=== PATIENT | male | born 1965 | race Caucasian/White ===

== ENCOUNTER 2016-10-03 18:03 | Emergency (ER) | payer BC ==
[~2016-10-03] VITALS: Ht 193 cm; Wt 145.6 kg
[~2016-10-03 18:03] MED LIST: ALLEGRA-D12 HOUR OR; CEPHALEXIN500 MG OR; DULERA1 AE1 IN; DYMISTA1 SPR; HYDROCO/APAP1 TA1 OR; L-THYROXINE SODIUM; LEVOTHYROXIN75 MCG PO; LIPITOR40 MG OR; LORTAB 5 OR; MONTELUKAST SOD10 MG PO; MUCINEX DM1 TAB OR; NO HOME MEDS; PERCOCET 10/31 COMBO PO; PERCOCET1 TA2 PO; PRAVACHOL20 MG PO; PRAVASTATIN SOD40 MG PO; PRAVASTATIN20 MG PO; VENTOLIN HFA IN
[2016-10-03 18:42] LABS: HEMATOCRIT 41.1 % (39.0-50.0); HEMOGLOBIN 13.7 g/dl (14.0-18.0); IMMATURE GRANULOCYTES 0.3 % (0.0-1.0); MEAN CELL VOLUME 88.6 fL CALC (80.0-100.0); MEAN CORPUSCULAR HGB 29.5 pG CALC (26.0-32.0); MEAN CORPUSCULAR HGB CONC 33.3 g/L CALC (32.0-36.0); NEUT# 6.02 thou/uL (1.82-7.42); RED BLOOD COUNT 4.64 mill/uL (4.70-6.10); RED CELL DISTRI WIDTH 13.5 % (11.5-15.5)
[2016-10-03 19:05] LABS: ALBUMIN 4.6 g/dL (3.2-5.0); ALKALINE PHOSPHATASE 59 u/l (38-126); ANION GAP 17 (6-22 (CALC)); BILIRUBIN, TOTAL 0.4 mg/dL (0.0-1.4); BUN 23 mg/dL (9-20); BUN/CREATININE RATIO 18 (12-20 (CALC)); CALCIUM 9.6 mg/dL (8.4-10.2); CARBON DIOXIDE 24 mmol/l (22-30); CHLORIDE 104 mmol/l (95-108); CREATININE 1.2 mg/dL (0.7-1.3); GFR > 60 ML/MIN (>=60 (CALC)); GFR FOR AFR.AMER. > 60 ML/MIN (>=60 (CALC)); GLUCOSE 79 mg/dL (75-110); POTASSIUM 4.2 mmol/l (3.5-5.1); SGOT/AST 31 u/l (17-59); SGPT/ALT 42 u/l (21-72); SODIUM 141 mmol/l (137-146); TOTAL PROTEIN 7.6 g/dL (6.3-8.2)
[2016-10-03] MEDS ORDERED: BENADRYL 50MG C50 MG PO (20:55)
[2016-10-03 21:13] VITALS: BP 131/74
== END 2016-10-03 21:13 | disposition home or self-care (01) | DRG 916 ==
LOC: ED 18:03
PROVIDERS: Emergency Medicine
DX: T78.40XA Allergy, unspecified, initial encounter (principal); R21 Rash and other nonspecific skin eruption; R22.0 Localized swelling, mass and lump, head

== ENCOUNTER 2017-03-05 18:49 | Inpatient (IN) | payer BC ==
[~2017-03-05] VITALS: Ht 193 cm; Wt 143.0 kg
[~2017-03-05 18:49] MED LIST changes: +BENADRYL 50MG C50 MG PO
--- NOTE | 2017-03-05 18:50 | NUR ---
PT ARRIVES TO ROOM # 4 VIA EMS STRETCHER WITH SPLINT IN PLACE TO RIGHT ANKLE.
--- NOTE | 2017-03-05 19:33 | NUR ---
REPORT GIVEN TO David FREEDMAN
[2017-03-05] MEDS ORDERED: METFORMIN500 M1 PO (19:35)
[2017-03-05] MEDS ORDERED: LEVOTHYROXINE112 MCG PO (19:35)
[2017-03-05] MEDS ORDERED: PHENTERMINE37.5 M1 PO (19:36)
[2017-03-05] MEDS ORDERED: MELOXICAM7.5 MG PO (19:37)
[2017-03-05 19:59] LABS: HEMATOCRIT 41.7 % (39.0-50.0); HEMOGLOBIN 14.1 g/dl (14.0-18.0); IMMATURE GRANULOCYTES 0.4 % (0.0-1.0); MEAN CELL VOLUME 89.5 fL CALC (80.0-100.0); MEAN CORPUSCULAR HGB 30.3 pG CALC (26.0-32.0); MEAN CORPUSCULAR HGB CONC 33.8 g/L CALC (32.0-36.0); NEUT# 8.47 thou/uL (1.82-7.42); RED BLOOD COUNT 4.66 mill/uL (4.70-6.10); RED CELL DISTRI WIDTH 12.9 % (11.5-15.5)
[2017-03-05 20:13] LABS: ALBUMIN 4.5 g/dL (3.2-5.0); ALKALINE PHOSPHATASE 59 u/l (38-126); ANION GAP 17 (6-22 (CALC)); BILIRUBIN, TOTAL 0.3 mg/dL (0.0-1.4); BUN 27 mg/dL (9-20); BUN/CREATININE RATIO 19 (12-20 (CALC)); CALCIUM 9.7 mg/dL (8.4-10.2); CARBON DIOXIDE 23 mmol/l (22-30); CHLORIDE 105 mmol/l (95-108); CREATININE 1.5 mg/dL (0.7-1.3); GFR 50 ML/MIN (>=60 (CALC)); GFR FOR AFR.AMER. 60 ML/MIN (>=60 (CALC)); GLUCOSE 122 mg/dL (75-110); POTASSIUM 3.9 mmol/l (3.5-5.1); SGOT/AST 34 u/l (17-59); SGPT/ALT 55 u/l (21-72); SODIUM 141 mmol/l (137-146); TOTAL PROTEIN 7.5 g/dL (6.3-8.2)
[2017-03-05 20:22] LABS: ACT PARTIAL THROMBO TIME 22.8 SECONDS (20.0-32.5); PROTHROMBIN TIME 10.8 SECONDS (9.0-12.5)
[2017-03-05 20:25] LABS: MYOGLOBIN 171 ng/mL (0 - 121)
--- NOTE | 2017-03-05 21:41 | NUR ---
PT RECEIVES SECOND DOSE OF MORPHINE AT THIS TIME, PRIOR TO PLACEMENT OF POSTERIOR ORTHOGLASS SPLINT.
--- NOTE | 2017-03-05 22:00 | NUR ---
RECEIVED REPORT FROM FRANSISCO FREEDMAN.
--- NOTE | 2017-03-05 22:52 | NUR ---
Admission Note Report Given to: STONE GO Transported by: Wheelchair X Stretcher Transported with: X Nurse Transporter X Patent IV O2 X Supervisor [employer]
--- NOTE | 2017-03-05 23:15 | NUR ---
RECEIVED FROM ER VIA STRETCHER ACCOMPANIED BY FREDDY RN, PT A/O X3, RESPIRATIONS EVEN AND UNLABORED, TRANSFERRED TO BED WITH ASSISTNACE X3. ORTHOGLASS SPLINT TO RLE, RIGHT ANKLE XRAY RESULTS READ BIMALLEOLAR FX, ABLE TO WIGGLE TOES, SLIGHT NON PITTING EDEMA TO TOES. C/O PAIN 10/10 MEDICATED WITH ULTRAM 50MG. NS INFUSING TO RAC AT 100CC/HR. TELE IN PLACE READING SR. URINAL AT BED SIDE, ORIENTED TO BED CONTROLS AND CALL LIGHT. WILL CONTINUE TO MONITOR.
[2017-03-05 23:16] VITALS: BP 104/70
[2017-03-05 23:43] LABS: URINE BILIRUBIN - DIPSTICK NEGATIVE (NEGATIVE); URINE BLOOD DIPSTICK NEGATIVE (NEGATIVE); URINE COLOR YELLOW; URINE GLUCOSE - DIPSTICK NEGATIVE (NEGATIVE); URINE KETONE NEGATIVE (NEGATIVE); URINE LEUK ESTERASE NEGATIVE (NEGATIVE); URINE NITRITE - DIPSTICK NEGATIVE (Negative); URINE PROTEIN - DIPSTICK NEGATIVE (NEG-TRACE); URINE UROBILINOGEN - DIPSTICK 0.2 E.U./dL (0.2)
[2017-03-05 23:44] LABS: URINE CLARITY CLEAR
--- NOTE | 2017-03-06 00:33 | NUR ---
PT DENIES ANY PAIN RELIEF FROM ULTRAM, NOTIFIED, NEW ORDER RECEIVED AND MEDICATED WITH DILAUDID 1MG IV AT 0033. WILL CONTINUE TO MONITOR.
[2017-03-06 04:15] VITALS: BP 108/67
--- NOTE | 2017-03-06 04:25 | NUR ---
MEDICATED WITH DILAUDID 1MG IV FOR C/O RIGHT LOWER LEG PAIN 09/10.
[2017-03-06 06:34] LABS: HEMATOCRIT 38.9 % (39.0-50.0); HEMOGLOBIN 12.9 g/dl (14.0-18.0); MEAN CELL VOLUME 89.8 fL CALC (80.0-100.0); MEAN CORPUSCULAR HGB 29.8 pG CALC (26.0-32.0); MEAN CORPUSCULAR HGB CONC 33.2 g/L CALC (32.0-36.0); RED BLOOD COUNT 4.33 mill/uL (4.70-6.10); RED CELL DISTRI WIDTH 13.1 % (11.5-15.5)
[2017-03-06 06:47] LABS: ANION GAP 15 (6-22 (CALC)); BUN 21 mg/dL (9-20); BUN/CREATININE RATIO 21 (12-20 (CALC)); CALCIUM 9.2 mg/dL (8.4-10.2); CALCULATED LDLCHOLESTEROL 86 mg/dL (62-129 (CALC)); CARBON DIOXIDE 22 mmol/l (22-30); CHLORIDE 108 mmol/l (95-108); CHOLESTEROL HDL RATIO 3.8 (<4.4 (CALC)); GFR > 60 ML/MIN (>=60 (CALC)); GFR FOR AFR.AMER. > 60 ML/MIN (>=60 (CALC)); GLUCOSE 103 mg/dL (75-110); HDL CHOLESTEROL 39 mg/dL (>=40); POTASSIUM 4.3 mmol/l (3.5-5.1); SODIUM 141 mmol/l (137-146); TOTAL CHOLESTEROL 148 mg/dl (0-199); TOTAL TRIGLYCERIDES 115 mg/dl (30-149); VLDL CHOLESTROL 23 mg/dl (5-56 (CALC))
--- NOTE | 2017-03-06 07:00 | NUR ---
REPORT RECEIVED FROM STONE GO. PT RESTING WITH EYES CLOSED, CALL LIGHT WITHIN REACH. SAFETY REVIEWED. WILL CONTINUE TO MONITOR.
--- NOTE | 2017-03-06 07:30 | NUR ---
PT AROUSABLE TO VERBAL STIMULI, ASSESSMENT PERFORMED. PT HAS RIGHT ANKLE SPLINTED AND WRAPPED. CAPILLARY REFILL < 3 SECONDS IN ALL TOES, PULSE FELT THRU PAXTON BANDAGE. PT, HAS ANKLE ELEVATED ON 2 PILLOWS. ASKING WHEN NEXT AVAILABLE PAIN MEDICATION IS DUE, PT INFROMED NEXT DILAUDID ADMINISTRATION TIME IS 0825, TYLENOL AVAILABLE NOW. PT WILLING TO TRY TYLENOL. PT ALSO STATES "IS THE DILAUDID SHOT AN OPIATE?" PT INFORMED OF CLASSIFICATION OF MEDICATION. PT GOES ON TO STATE "IM GOING TO NEED SOMETHING TO HELP ME HAVE A BM, WHEN I BROKE MY OTHER ANKLE I LEARNED ABOUT THE TERRIBLE SIDE EFFECTS OF OPIATES." WILL NOTIFY MD OF NEED FOR STOOL SOFTENER.
--- NOTE | 2017-03-06 08:00 | NUR ---
MD IN TO SEE PT, DIRECTOR SALES AND MARKETING ON PHONE, MD INFORMS PT OF NEED FOR SURGERY.
[2017-03-06 08:19] VITALS: BP 105/59
--- NOTE | 2017-03-06 11:33 | NUR ---
NOLAN JAVIER IN TO SEE PT AT THIS TIME, TO SEE AND TALK WITH PT ABOUT SURGERY. PT AND SPOUSE AT BS.
[2017-03-06 12:00] VITALS: BP 119/62
--- NOTE | 2017-03-06 13:11 | NUR ---
DEWAYNE CID IN TO SEE PT FOR ANESTHESIA CONSENT.
--- NOTE | 2017-03-06 14:10 | NUR ---
CONSENT FOR PROCEDURE SIGNED AT THIS TIME. TOVA FROM OR ON PHONE STATES "ABOUT 0700 WE WILL BE UP TO GET HIM." PT AND FAMILY NOTIFIED.
--- NOTE | 2017-03-06 16:00 | NUR ---
PT STATES PAIN IS "FINALLY UNDERCONTROL" PT ASKING ABOUT HAVING BM, EDUCATED PT OF THE USE OF BSC. HESITANT TO USE, BUT STATES UNDERSTANDING.
[2017-03-06 16:16] VITALS: BP 115/64
--- NOTE | 2017-03-06 18:16 | NUR ---
PT RESTING IN BED, TALKING ON PHONE, HAS FAMILY AT BS. WILL CONTINUE TO MONITOR.
[2017-03-06 19:44] VITALS: BP 128/74
--- NOTE | 2017-03-06 19:49 | NUR ---
C/O LLE PAIN 08/11, MEDICATED WITH PERCOCET AT THIS TIME. A/O X3, RESPIRATIONS EVEN AND UNLABORED. ORTHOGLASS SPLINT WITH PAXTON BANDAGE TO LLE ALSO ELEVATED ON PILLOWS. NS INFUSING TO LAC AT 100CC/HR. PO FLUIDS IN REACH, AWARE OF NPO AFTER MIDNIGHT, AT BED SIDE. ENCOURAGED TO USE CALL LIGHT FOR ASSISTANCE, WILL CONTINUE TO MONITOR.
--- NOTE | 2017-03-06 19:50 | NUR ---
C/O RLE PAIN 08/11, MEDICATED WITH PERCOCET AT THIS TIME. A/O X3, RESPIRATIONS EVEN AND UNLABORED. ORTHOGLASS SPLINT WITH PAXTON BANDAGE TO RLE ALSO ELEVATED ON PILLOWS. NS INFUSING TO LAC AT 100CC/HR. PO FLUIDS IN REACH, AWARE OF NPO AFTER MIDNIGHT, AT BED SIDE. ENCOURAGED TO USE CALL LIGHT FOR ASSISTANCE, WILL CONTINUE TO MONITOR.
--- NOTE | 2017-03-06 23:42 | NUR ---
ASSISTED WITH REPOSITIONING PT C/O NOT BEING ABLE TO FIND A COMFORTABLE POSITION, AND HAS PAIN 10/10 TO RLE, MEDICATED WITH DILAUDID 1MG IV AT THIS ITME.
[2017-03-07] VITALS (13 sets, daily range): BP systolic 98–149; BP diastolic 57–83
--- NOTE | 2017-03-07 02:40 | NUR ---
C/O PAIN TO RLE 6/10, MEDICATED WITH PERCOCET AT THIS TIME WITH SIP OF WATER.
--- NOTE | 2017-03-07 04:22 | NUR ---
MORNING LABS DRAWN BY AD OPERATIONS ASSOCIATE, TOLERATED WELL.
[2017-03-07 04:43] LABS: ANION GAP 14 (6-22 (CALC)); BUN 14 mg/dL (9-20); BUN/CREATININE RATIO 14 (12-20 (CALC)); CALCIUM 8.9 mg/dL (8.4-10.2); CARBON DIOXIDE 24 mmol/l (22-30); CHLORIDE 110 mmol/l (95-108); GFR > 60 ML/MIN (>=60 (CALC)); GFR FOR AFR.AMER. > 60 ML/MIN (>=60 (CALC)); GLUCOSE 98 mg/dL (75-110); POTASSIUM 4.2 mmol/l (3.5-5.1); SODIUM 143 mmol/l (137-146)
[2017-03-07 05:06] LABS: HEMATOCRIT 36.5 % (39.0-50.0); MEAN CELL VOLUME 91.7 fL CALC (80.0-100.0); MEAN CORPUSCULAR HGB 30.2 pG CALC (26.0-32.0); MEAN CORPUSCULAR HGB CONC 32.9 g/L CALC (32.0-36.0); RED BLOOD COUNT 3.98 mill/uL (4.70-6.10); RED CELL DISTRI WIDTH 13.1 % (11.5-15.5)
--- NOTE | 2017-03-07 06:13 | NUR ---
PT IN SEMIFOWLERS RLE ELEVATED ON PILLOWS, C/O PAIN / MEDICATED WITH SCHEDULED TORADOL. FAMILY AT BED SIDE. CONTINUES TO BE NPO.
--- NOTE | 2017-03-07 07:05 | NUR ---
PT LAYING IN BED TALKING TO FAMILY WHO ARE BEDSIDE, PT A&O X3, PERRL, PT STATED HE WAS HAVING MINIMAL PAIN IN R ANKLE BUT IT IS BEARABLE WITH THE MEDICATION HE WAS GIVEN EARLIER, HR 56, RESP. 18, BP 107/64, O2 98% ON RA, SPLINT WITH PAXTON WRAP REMAIN ON RLE, CIRCULATION UNCOMPROMISED, 20G RAC IV WITH NS INFUSING AT PERSCRIBED RATE, AM ASSESSMENT COMPLETE, SEE INTERVENTIONS, SAFETY MEASURES REINFORCED, CALL QUESADA WITHIN REACH
--- NOTE | 2017-03-07 07:35 | NUR ---
PT TO OR VIA STRETCHER
--- NOTE | 2017-03-07 08:07 | NUR ---
resting with eyes closed; easily aroused; high fowlers for breakfast; meal set up; assist feed; afib on monitor; arango to gravity; iv patent; o2 per nc; call light within reach; will continue to monitor
--- NOTE | 2017-03-07 12:40 | NUR ---
PT RETURNED TO UNIT FROM OR VIA STRETCHER, PT MOVED OVER TO BED FROM STRETCHER WITH MINIMAL ASSISTANCE, RLE ELEVATED, CIRCULATION UNCOMPROMISED, PT REMINDED TO CALL FOR ASSISTANCE, CALL QUESADA WITHIN REACH
--- NOTE | 2017-03-07 13:00 | NUR ---
DR BARRAZA AT BEDSIDE DISCUSSING PLAN OF CARE
--- NOTE | 2017-03-07 13:15 | NUR ---
AT BEDSIDE, PLAN OF TREATMENT PER MD DISCUSSED WITH PER PT REQUEST
--- NOTE | 2017-03-07 14:24 | NUR ---
PT RESTING WITH EYES CLOSED, AROUSES EASILY TO VERBAL STIMULI, PT DENIES ANY PAIN AT THIS TIME, REMINDED TO CALL FOR ASSISTANCE, CALL QUESADA WITHIN REACH
--- NOTE | 2017-03-07 16:40 | NUR ---
ATTEMPTED TO SEE PATIENT FOR INITIAL EVAL AND GT. HE IS S/P ORIF WITH EXT FIXATION WELL ON LEFT ANKLE THIS AM. PATIENT IS STILL GROGGY FROM SURGERY. FAMILY IS NOT AT BEDSIDE. REQUESTED CRUTCHES BE ORDERED OR FAMLY ASKED TO BRING IN ANY THEY MAY HAVE. PATIENT HAS HAD MULTIPE SURGERIES ON LEFT ANKLE/FOOT. DEFERRED EVAL THIS AFTERNOON AND WILL F/U TOMORROW FOR CRUTCH OR WALKER TRANINING CHRISTINE ROTHMAN.
--- NOTE | 2017-03-07 17:30 | NUR ---
SETUP ASSIST PROVIDED WITH PM MEAL
--- NOTE | 2017-03-07 19:00 | NUR ---
awake. denies pain. rle remains elevated. dsg cdi. external fixator in place. data clerk shows sinus rhythm. #20 rac ns infusing @ 100cchr. po fluids taken well. voids per urinal. fall precautions cont. daughter @ bedside.
--- NOTE | 2017-03-07 23:00 | NUR ---
percocet 10/325 po per request for pain.
--- NOTE | 2017-03-08 00:01 | NUR ---
eyes closed. no distress.
--- NOTE | 2017-03-08 04:00 | NUR ---
resting quietly. no apparent distress. lunchroom monitor shows sinus rhythm.
--- NOTE | 2017-03-08 05:00 | NUR ---
lab here. blood drawn.
[2017-03-08 05:34] LABS: HEMATOCRIT 36.5 % (39.0-50.0); HEMOGLOBIN 12.2 g/dl (14.0-18.0); MEAN CELL VOLUME 90.8 fL CALC (80.0-100.0); MEAN CORPUSCULAR HGB 30.3 pG CALC (26.0-32.0); MEAN CORPUSCULAR HGB CONC 33.4 g/L CALC (32.0-36.0); RED BLOOD COUNT 4.02 mill/uL (4.70-6.10); RED CELL DISTRI WIDTH 12.3 % (11.5-15.5)
[2017-03-08 05:39] LABS: ANION GAP 13 (6-22 (CALC)); BUN 13 mg/dL (9-20); BUN/CREATININE RATIO 11 (12-20 (CALC)); CARBON DIOXIDE 28 mmol/l (22-30); CHLORIDE 107 mmol/l (95-108); CREATININE 1.2 mg/dL (0.7-1.3); GFR > 60 ML/MIN (>=60 (CALC)); GFR FOR AFR.AMER. > 60 ML/MIN (>=60 (CALC)); GLUCOSE 100 mg/dL (75-110); POTASSIUM 4.2 mmol/l (3.5-5.1); SODIUM 144 mmol/l (137-146)
--- NOTE | 2017-03-08 06:05 | NUR ---
percocet 10mg po per request for op pain.
[2017-03-08 06:45] VITALS: BP 128/78
--- NOTE | 2017-03-08 07:15 | NUR ---
PT RESTING IN BED AWAKE ALERT AND ORIENTED, AM ASSESSMENT COMPLETED SEE INTERVENTIONS, IV ACCESS INTACT IN R AC WITH IVF INFUSING AT PRESCRIBED RATE, PT TAKING IN COPIUS AMOUNTS OF PO FLUID WITHOUT INCINDENT, URINAL EMPTIED OF 400 ML CLEAR YELLOW URINE, PT COMPLAINS OF FEELING A BIT "PUFFY" SOME EDEMA NOTED TO HANDS RLE WITH EDEMA, HARDWARE INTACT PPP, TOES WARM WITH GOOD CAP REFILL, PT STATES SOME NUMBNESS BUT FEELS TOUCHING SENSATION, NO S/S OF INFECTION PT HAD T MAX ON PREVIOUS SHIFT WAS 100.6. THIS AM ON ASSESSMENT TEMP 99.3, COMOFROT MEASURES PROVIDED, STATES LAST BM PRIOR TO ADMIT WITH HIM REQUESTING "SOMETHING TO HELP" DISCUSSED PAIN CONTROL AND MEDICATIONS WITH PATIETN VERBALIZING UNDERSTANDING, TELE READING SR RATE IN THE 80-90'S BP STABLE, SEE INTERVNENTIONS, CALL QUESADA WITHIN REACH, SAFETY MEASURES REINFORCED AND PLAN OF CARE COVERED INCLUDING, PT EVAL AND TREAT AND HOPEFULLLY OOB, ALL QUESTIONS ANSWERED, WILL CONTINUE TO MONITOR.
--- NOTE | 2017-03-08 07:20 | NUR ---
SCD INTACT ON LLE, R OFF RELATED TO SURGICAL SITE AND EXTERNAL HARDWARE
--- NOTE | 2017-03-08 08:00 | NUR ---
SET UP ASSIST PROVIDED FOR AM MEAL, PT SAIDA TO REPOSITION SELF IN BED FOR COMFORT, RLE REMAINS ELEVATED ON PILLOWS, CALL QUESADA WITHIN REACH
--- NOTE | 2017-03-08 08:56 | NUR ---
AND VISITOR AT BEDSIDE, VERBALIZES DESIRE TO HAVE MONITORING EQUIPMENT REMOVED AND GET OOB, EDUCATED REGARDING PHYSICAL THERAPY ORDERS, IVF ORDERS ETC....PT VERBALIZES UNDERSTANDING, STATES "I'M JUST READY TO GET OOB SO I CAN GO HOME.
--- NOTE | 2017-03-08 10:30 | NUR ---
physical therapy at bedside and worked with pt, stood and took 8-10 steps with crutches and tolerated well, at bedside and educated regarding safety at home as well.
[2017-03-08 11:00] VITALS: BP 140/76
--- NOTE | 2017-03-08 11:18 | NUR ---
Pt requesting stool softnener, order rec'd and will medicate for constipation as well as pain at prescribed time
--- NOTE | 2017-03-08 11:31 | NUR ---
MEDICATED FOR COMPLAINTS OF PAIN AND STOOL SOFTENER REQUESTED, CALLBELL WITHIN REACH
--- NOTE | 2017-03-08 12:10 | NUR ---
set up assist provided for afternoon meal
--- NOTE | 2017-03-08 14:00 | NUR ---
PT MEDICATED FOR PAIN RELATED TO PLANNED D/C IV SITE REMOVED INTACT W/O INCIDENT, AT BEDSIDE, DISCUSSED PLAN OF CARE RELATED TO D/C WITH BOTH, BOTH PT AND SPOUSE VERBALIZE UNDERSTANDING.
--- NOTE | 2017-03-08 14:15 | NUR ---
PT STOOD AND TRANSFERRED TO W/C ASSISTED TO PERSONAL VEHICLE, PT INTO PERSONAL VEHICLE WITH ONE MIN/MOD ASSIST, TOLERATED ACTIVITY WELL. Discharge instructions given. Patient verbalizes understanding of same. Discharged in stable condition via Wheelchair to Home with spouse. All belongings sent with pt.
== END 2017-03-08 14:15 | disposition home or self-care (01) | DRG 493 ==
LOC: ED 18:49 → ED-I 20:52 → ED 22:01 → ICU 22:02
PROVIDERS: Emergency Medicine; ADMIT Internal Medicine; ATTEND Internal Medicine
PROC: 2W3QX1Z Immobilization of Right Lower Leg using Splint (ICD-10-PCS; 2017-03-05)
PROC: 0QSJ04Z Reposition Right Fibula with Internal Fixation Device, Open Approach (ICD-10-PCS; principal; 2017-03-07)
PROC: 0QHG35Z Insertion of External Fixation Device into Right Tibia, Percutaneous Approach (ICD-10-PCS; 2017-03-07)
PROC: 0SSF04Z Reposition Right Ankle Joint with Internal Fixation Device, Open Approach (ICD-10-PCS; 2017-03-07)
PROC: 0QSGXZZ Reposition Right Tibia, External Approach (ICD-10-PCS; 2017-03-07)
DX: S82.851A Displaced trimalleolar fracture of right lower leg, initial encounter for closed fracture (principal); S93.431A Sprain of tibiofibular ligament of right ankle, initial encounter; N17.9 Acute kidney failure, unspecified; E03.9 Hypothyroidism, unspecified; E11.9 Type 2 diabetes mellitus without complications; E78.5 Hyperlipidemia, unspecified; E66.9 Obesity, unspecified; F17.220 Nicotine dependence, chewing tobacco, uncomplicated; R07.89 Other chest pain; E86.0 Dehydration; W18.39XA Other fall on same level, initial encounter; Y92.71 Barn as the place of occurrence of the external cause; Y93.89 Activity, other specified; Z68.38 Body mass index [BMI] 38.0-38.9, adult; Z79.84 Long term (current) use of oral hypoglycemic drugs
CPT/HCPCS: J1650

== ENCOUNTER 2017-03-19 16:07 | Inpatient (IN) | payer BC ==
[~2017-03-19] VITALS: Ht 193 cm; Wt 136.9 kg
[~2017-03-19 16:07] MED LIST changes: +LEVOTHYROXINE112 MCG PO; +MELOXICAM7.5 MG PO; +METFORMIN500 M1 PO; +PHENTERMINE37.5 M1 PO
[2017-03-19 16:15] VITALS: BP 110/72
[2017-03-19 16:50] LABS: HEMATOCRIT 43.7 % (39.0-50.0); HEMOGLOBIN 14.2 g/dl (14.0-18.0); IMMATURE GRANULOCYTES 0.3 % (0.0-1.0); MEAN CELL VOLUME 91.2 fL CALC (80.0-100.0); MEAN CORPUSCULAR HGB 29.6 pG CALC (26.0-32.0); MEAN CORPUSCULAR HGB CONC 32.5 g/L CALC (32.0-36.0); NEUT# 7.72 thou/uL (1.82-7.42); RED BLOOD COUNT 4.79 mill/uL (4.70-6.10); RED CELL DISTRI WIDTH 12.6 % (11.5-15.5)
[2017-03-19 17:02] LABS: ALBUMIN 4.5 g/dL (3.2-5.0); ALKALINE PHOSPHATASE 77 u/l (38-126); ANION GAP 17 (6-22 (CALC)); BILIRUBIN, TOTAL 0.4 mg/dL (0.0-1.4); BUN 24 mg/dL (9-20); BUN/CREATININE RATIO 20 (12-20 (CALC)); CALCIUM 10.4 mg/dL (8.4-10.2); CARBON DIOXIDE 27 mmol/l (22-30); CHLORIDE 105 mmol/l (95-108); CREATININE 1.2 mg/dL (0.7-1.3); GFR > 60 ML/MIN (>=60 (CALC)); GFR FOR AFR.AMER. > 60 ML/MIN (>=60 (CALC)); GLUCOSE 106 mg/dL (75-110); POTASSIUM 4.6 mmol/l (3.5-5.1); SGOT/AST 17 u/l (17-59); SGPT/ALT 32 u/l (21-72); SODIUM 144 mmol/l (137-146); TOTAL PROTEIN 7.5 g/dL (6.3-8.2)
[2017-03-19 18:00] VITALS: BP 117/70
[2017-03-19 21:18] LABS: URINE BILIRUBIN - DIPSTICK NEGATIVE (NEGATIVE); URINE BLOOD DIPSTICK NEGATIVE (NEGATIVE); URINE COLOR YELLOW; URINE GLUCOSE - DIPSTICK NEGATIVE (NEGATIVE); URINE KETONE NEGATIVE (NEGATIVE); URINE LEUK ESTERASE NEGATIVE (Negative); URINE NITRITE - DIPSTICK NEGATIVE (Negative); URINE PH 6.5 (4.5-8.0); URINE PROTEIN - DIPSTICK NEGATIVE (NEG-TRACE); URINE UROBILINOGEN - DIPSTICK 0.2 E.U./dL (0.2)
[2017-03-19 21:19] LABS: URINE CLARITY CLEAR
[2017-03-20 04:46] VITALS: BP 114/74
[2017-03-20 06:29] LABS: HEMATOCRIT 43.5 % (39.0-50.0); HEMOGLOBIN 14.3 g/dl (14.0-18.0); IMMATURE GRANULOCYTES 0.2 % (0.0-1.0); MEAN CORPUSCULAR HGB 29.9 pG CALC (26.0-32.0); MEAN CORPUSCULAR HGB CONC 32.9 g/L CALC (32.0-36.0); NEUT# 6.42 thou/uL (1.82-7.42); RED BLOOD COUNT 4.78 mill/uL (4.70-6.10); RED CELL DISTRI WIDTH 12.6 % (11.5-15.5)
[2017-03-20 06:54] LABS: ANION GAP 20 (6-22 (CALC)); BUN 19 mg/dL (9-20); BUN/CREATININE RATIO 19 (12-20 (CALC)); CALCIUM 10.2 mg/dL (8.4-10.2); CARBON DIOXIDE 25 mmol/l (22-30); CHLORIDE 104 mmol/l (95-108); GFR > 60 ML/MIN (>=60 (CALC)); GFR FOR AFR.AMER. > 60 ML/MIN (>=60 (CALC)); GLUCOSE 88 mg/dL (75-110); MAGNESIUM 2.1 mg/dL (1.6-2.3); POTASSIUM 4.6 mmol/l (3.5-5.1); SODIUM 144 mmol/l (137-146)
[2017-03-20 07:25] VITALS: BP 107/70
[2017-03-20 08:08] VITALS: BP 114/71
[2017-03-20] MEDS ORDERED: PRAVASTATIN SOD40 MG PO (09:53)
[2017-03-20] MEDS ORDERED: MOVANTIK25 MG PO (09:57)
[2017-03-20] MEDS ORDERED: [UNRECOGNIZED DRUG - OTHER] (09:58)
[2017-03-20] MEDS ORDERED: BAYER ASPIRIN325 MG PO (10:01)
[2017-03-20] MEDS ORDERED: PERCOCET 10/31 COMBO PO (10:03)
[2017-03-20 17:16] VITALS: BP 116/72
[2017-03-20 19:39] VITALS: BP 106/65
[2017-03-21] VITALS (8 sets, daily range): BP systolic 99–119; BP diastolic 52–78
[2017-03-21 06:36] LABS: HEMOGLOBIN 13.8 g/dl (14.0-18.0); IMMATURE GRANULOCYTES 0.3 % (0.0-1.0); MEAN CELL VOLUME 91.5 fL CALC (80.0-100.0); MEAN CORPUSCULAR HGB 30.1 pG CALC (26.0-32.0); MEAN CORPUSCULAR HGB CONC 32.9 g/L CALC (32.0-36.0); NEUT# 5.53 thou/uL (1.82-7.42); RED BLOOD COUNT 4.59 mill/uL (4.70-6.10); RED CELL DISTRI WIDTH 12.6 % (11.5-15.5)
[2017-03-21 06:46] LABS: ALKALINE PHOSPHATASE 72 u/l (38-126); ANION GAP 16 (6-22 (CALC)); BILIRUBIN, TOTAL 0.3 mg/dL (0.0-1.4); BUN 21 mg/dL (9-20); BUN/CREATININE RATIO 18 (12-20 (CALC)); CARBON DIOXIDE 27 mmol/l (22-30); CHLORIDE 104 mmol/l (95-108); CREATININE 1.2 mg/dL (0.7-1.3); GFR > 60 ML/MIN (>=60 (CALC)); GFR FOR AFR.AMER. > 60 ML/MIN (>=60 (CALC)); GLUCOSE 97 mg/dL (75-110); POTASSIUM 4.6 mmol/l (3.5-5.1); SGOT/AST 15 u/l (17-59); SGPT/ALT 28 u/l (21-72); SODIUM 143 mmol/l (137-146); TOTAL PROTEIN 6.7 g/dL (6.3-8.2)
[2017-03-21 06:50] LABS: ACT PARTIAL THROMBO TIME 25.7 SECONDS (20.0-32.5); PROTHROMBIN TIME 11.1 SECONDS (9.0-12.5)
[2017-03-21] MEDS ORDERED: EC ASPIRIN325 M1 PO (10:03)
[2017-03-21] MEDS ORDERED: KEFLEX500 M1 PO (10:03)
[2017-03-21] MEDS ORDERED: PERCOCET1 TA4 PO (10:03)
== END 2017-03-21 14:25 | disposition home or self-care (01) | DRG 494 ==
LOC: MS2 16:07
PROVIDERS: Nurse Practitioner Family; ADMIT Internal Medicine; ATTEND Internal Medicine
PROC: 0QSG04Z Reposition Right Tibia with Internal Fixation Device, Open Approach (ICD-10-PCS; principal; 2017-03-21)
PROC: 0QBL0ZZ Excision of Right Tarsal, Open Approach (ICD-10-PCS; 2017-03-21)
PROC: 0SBF4ZZ Excision of Right Ankle Joint, Percutaneous Endoscopic Approach (ICD-10-PCS; 2017-03-21)
PROC: 0QBG0ZZ Excision of Right Tibia, Open Approach (ICD-10-PCS; 2017-03-21)
PROC: 0QPGX5Z Removal of External Fixation Device from Right Tibia, External Approach (ICD-10-PCS; 2017-03-21)
PROC: 0QPLX5Z Removal of External Fixation Device from Right Tarsal, External Approach (ICD-10-PCS; 2017-03-21)
DX: S82.871A Displaced pilon fracture of right tibia, initial encounter for closed fracture (principal); E03.9 Hypothyroidism, unspecified; S82.831A Other fracture of upper and lower end of right fibula, initial encounter for closed fracture; E11.9 Type 2 diabetes mellitus without complications; E66.9 Obesity, unspecified; K59.03 Drug induced constipation; T40.605A Adverse effect of unspecified narcotics, initial encounter; F17.220 Nicotine dependence, chewing tobacco, uncomplicated; M19.90 Unspecified osteoarthritis, unspecified site; X58.XXXA Exposure to other specified factors, initial encounter; Z79.84 Long term (current) use of oral hypoglycemic drugs; Z79.899 Other long term (current) drug therapy; Z68.36 Body mass index [BMI] 36.0-36.9, adult

== ENCOUNTER 2017-06-06 12:26 | Emergency (ER) | payer BC ==
[~2017-06-06] VITALS: Ht 193 cm; Wt 143.6 kg
[~2017-06-06 12:26] MED LIST changes: +BAYER ASPIRIN325 MG PO; +EC ASPIRIN325 M1 PO; +KEFLEX500 M1 PO; +MOVANTIK25 MG PO; +PERCOCET1 TA4 PO; +[UNRECOGNIZED DRUG - OTHER]
[2017-06-06] MEDS ORDERED: MELOXICAM7.5 MG PO (13:17)
[2017-06-06] MEDS ORDERED: LOSARTAN POT50 MG PO (13:18)
[2017-06-06 13:27] LABS: HEMATOCRIT 40.9 % (39.0-50.0); HEMOGLOBIN 13.6 g/dl (14.0-18.0); IMMATURE GRANULOCYTES 0.3 % (0.0-1.0); MEAN CELL VOLUME 90.7 fL CALC (80.0-100.0); MEAN CORPUSCULAR HGB 30.2 pG CALC (26.0-32.0); MEAN CORPUSCULAR HGB CONC 33.3 g/L CALC (32.0-36.0); NEUT# 7.74 thou/uL (1.82-7.42); RED BLOOD COUNT 4.51 mill/uL (4.70-6.10); RED CELL DISTRI WIDTH 13.9 % (11.5-15.5)
[2017-06-06 13:28] LABS: URINE BILIRUBIN - DIPSTICK NEGATIVE (NEGATIVE); URINE BLOOD DIPSTICK NEGATIVE (NEGATIVE); URINE CLARITY CLEAR; URINE COLOR YELLOW; URINE GLUCOSE - DIPSTICK NEGATIVE (NEGATIVE); URINE KETONE NEGATIVE (NEGATIVE); URINE LEUK ESTERASE NEGATIVE (NEGATIVE); URINE NITRITE - DIPSTICK NEGATIVE (Negative); URINE PH 5.5 (4.5-8.0); URINE PROTEIN - DIPSTICK NEGATIVE (NEG-TRACE); URINE SPECIFIC GRAVITY <=1.005; URINE UROBILINOGEN - DIPSTICK 0.2 E.U./dL (0.2)
[2017-06-06 13:42] LABS: ALBUMIN 4.4 g/dL (3.2-5.0); ALKALINE PHOSPHATASE 94 u/l (38-126); ANION GAP 19 (6-22 (CALC)); BILIRUBIN, TOTAL 0.5 mg/dL (0.0-1.4); BUN 14 mg/dL (9-20); BUN/CREATININE RATIO 14 (12-20 (CALC)); CARBON DIOXIDE 25 mmol/l (22-30); CHLORIDE 104 mmol/l (95-108); GFR > 60 ML/MIN (>=60 (CALC)); GFR FOR AFR.AMER. > 60 ML/MIN (>=60 (CALC)); POTASSIUM 4.3 mmol/l (3.5-5.1); SGOT/AST 17 u/l (17-59); SGPT/ALT 36 u/l (21-72); SODIUM 143 mmol/l (137-146); TOTAL PROTEIN 7.9 g/dL (6.3-8.2)
[2017-06-06 15:57] VITALS: BP 119/77
== END 2017-06-06 16:03 | disposition home or self-care (01) | DRG 556 ==
LOC: ED 12:26
PROVIDERS: Emergency Medicine
DX: M79.671 Pain in right foot (principal); F17.220 Nicotine dependence, chewing tobacco, uncomplicated; R22.41 Localized swelling, mass and lump, right lower limb; R20.2 Paresthesia of skin; R06.02 Shortness of breath
CPT/HCPCS: Q9967

== ENCOUNTER 2018-08-25 18:06 | Emergency (ER) | payer BC ==
[~2018-08-25] VITALS: Ht 193 cm; Wt 154.0 kg
[~2018-08-25 18:06] MED LIST changes: +LOSARTAN POT50 MG PO
[2018-08-25 19:42] LABS: HEMATOCRIT 43.9 % (39.0-50.0); HEMOGLOBIN 14.5 g/dl (14.0-18.0); IMMATURE GRANULOCYTES 0.4 % (0.0-5.0); MEAN CELL VOLUME 88.5 fL CALC (80.0-100.0); MEAN CORPUSCULAR HGB 29.2 pG CALC (26.0-32.0); NEUT# 7.03 thou/uL (1.82-7.42); RED BLOOD COUNT 4.96 mill/uL (4.70-6.10); RED CELL DISTRI WIDTH 13.1 % (11.5-15.5)
[2018-08-25 19:48] LABS: ALBUMIN 4.8 g/dL (3.2-5.0); ALKALINE PHOSPHATASE 73 u/l (38-126); AMYLASE 79 u/l (30-110); ANION GAP 14 (6-22 (CALC)); BILIRUBIN, TOTAL 0.4 mg/dL (0.0-1.4); BUN 17 mg/dL (9-20); BUN/CREATININE RATIO 15 (12-20 (CALC)); CARBON DIOXIDE 26 mmol/l (22-30); CHLORIDE 105 mmol/l (95-108); CREATININE 1.1 mg/dL (0.7-1.3); GFR > 60 ML/MIN (>=60 (CALC)); GFR FOR AFR.AMER. > 60 ML/MIN (>=60 (CALC)); LIPASE 74 u/l (23-300); SODIUM 142 mmol/l (137-146); TOTAL PROTEIN 8.3 g/dL (6.3-8.2)
[2018-08-25 19:53] LABS: SGOT/AST 40 u/l (17-59)
[2018-08-25 20:00] LABS: MYOGLOBIN 38 ng/mL (0 - 121)
[2018-08-25 21:14] LABS: URINE BILIRUBIN - DIPSTICK NEGATIVE (NEGATIVE); URINE BLOOD DIPSTICK NEGATIVE (NEGATIVE); URINE COLOR YELLOW; URINE GLUCOSE - DIPSTICK NEGATIVE (NEGATIVE); URINE KETONE NEGATIVE (NEGATIVE); URINE LEUK ESTERASE NEGATIVE (NEGATIVE); URINE NITRITE - DIPSTICK NEGATIVE (Negative); URINE PROTEIN - DIPSTICK NEGATIVE (NEG-TRACE); URINE SPECIFIC GRAVITY 1.015; URINE UROBILINOGEN - DIPSTICK 0.2 E.U./dL (0.2)
[2018-08-25] MEDS ORDERED: PREVACID30 M3 PO (21:24)
[2018-08-25 21:34] LABS: TSH, 3RD GENERATION 2.61 uIU/mL (0.47 - 4.68)
[2018-08-25 21:54] VITALS: BP 124/76
== END 2018-08-25 21:54 | disposition home or self-care (01) | DRG 392 ==
LOC: ED 18:06
PROVIDERS: Emergency Medicine
DX: K29.70 Gastritis, unspecified, without bleeding (principal); E11.9 Type 2 diabetes mellitus without complications; F17.220 Nicotine dependence, chewing tobacco, uncomplicated
CPT/HCPCS: Q9967

== ENCOUNTER 2018-09-25 07:35 | Day surgery (SDC) | payer BC ==
[~2018-09-25] VITALS: Ht 193 cm; Wt 155.1 kg
[~2018-09-25 07:35] MED LIST changes: +ALLERGY NA50 MCG/ACT; +BELVIQ10 MG; +OMEGA 31000 MG PO; +PREVACID30 M3 PO; +SUCRALFATE1 GM PO; +SYNTHROID125 MCG PO
[2018-09-25 09:51] VITALS: BP 109/64
== END 2018-09-25 10:05 | disposition home or self-care (01) | DRG 392 ==
LOC: ENDO 07:35 → ORM 10:15 → ENDO 10:15
PROVIDERS: ATTEND Surgery
PROC: 0DB58ZX Excision of Esophagus, Via Natural or Artificial Opening Endoscopic, Diagnostic (ICD-10-PCS; principal; 2018-09-25)
PROC: 0DB68ZX Excision of Stomach, Via Natural or Artificial Opening Endoscopic, Diagnostic (ICD-10-PCS; 2018-09-25)
DX: K29.70 Gastritis, unspecified, without bleeding (principal); E11.9 Type 2 diabetes mellitus without complications; F17.210 Nicotine dependence, cigarettes, uncomplicated; Z79.84 Long term (current) use of oral hypoglycemic drugs

== ENCOUNTER 2020-01-30 08:42 | Emergency (ER) | payer BC ==
[~2020-01-30] VITALS: Ht 193 cm; Wt 111.0 kg
[2020-01-30] MEDS ORDERED: PRAVACHOL20 MG PO (08:55)
[2020-01-30] MEDS ORDERED: LANSOPRAZOLE30 MG PO (08:55)
[2020-01-30] MEDS ORDERED: SINGULAIR10 MG PO (08:57)
[2020-01-30] MEDS ORDERED: LORATADINE10 M1 PO (08:57)
[2020-01-30 09:29] LABS: HEMATOCRIT 42.1 % (39.0-50.0); HEMOGLOBIN 13.9 g/dl (14.0-18.0); IMMATURE GRANULOCYTES 0.3 % (0.0-5.0); MEAN CELL VOLUME 87.9 fL CALC (80.0-100.0); NEUT# 7.26 thou/uL (1.82-7.42); RED BLOOD COUNT 4.79 mill/uL (4.70-6.10); RED CELL DISTRI WIDTH 13.3 % (11.5-15.5)
[2020-01-30 09:49] LABS: D-DIMER 0.41 mg/L (0.19-0.60)
[2020-01-30 09:50] LABS: ALBUMIN 4.3 g/dL (3.2-5.0); ALKALINE PHOSPHATASE 90 u/l (38-126); ANION GAP 14 (6-22 (CALC)); BILIRUBIN, TOTAL 0.4 mg/dL (0.0-1.4); BUN 11 mg/dL (9-20); BUN/CREATININE RATIO 11 (12-20 (CALC)); CARBON DIOXIDE 24 mmol/l (22-30); CHLORIDE 106 mmol/l (95-108); GFR > 60 ML/MIN (>=60 (CALC)); GFR FOR AFR.AMER. > 60 ML/MIN (>=60 (CALC)); LIPASE 75 u/l (23-300); SGOT/AST 34 u/l (17-59); SODIUM 139 mmol/l (137-146); TOTAL PROTEIN 7.8 g/dL (6.3-8.2)
[2020-01-30 09:56] LABS: ACT PARTIAL THROMBO TIME 22.9 SECONDS (20.0-32.5); PROTHROMBIN TIME 9.9 SECONDS (9.0-12.5)
[2020-01-30] MEDS ORDERED: ZITHROMAX250 MG PO (12:59)
[2020-01-30] MEDS ORDERED: VENTOLIN HFA IN (12:59)
[2020-01-30] MEDS ORDERED: TESSALON PERLE100 MG PO (12:59)
[2020-01-30 13:20] VITALS: BP 122/74
== END 2020-01-30 13:21 | disposition home or self-care (01) | DRG 203 ==
LOC: ED 08:42
DX: J40 Bronchitis, not specified as acute or chronic (principal); J32.9 Chronic sinusitis, unspecified; E11.9 Type 2 diabetes mellitus without complications; F17.200 Nicotine dependence, unspecified, uncomplicated; Z79.84 Long term (current) use of oral hypoglycemic drugs; Z87.01 Personal history of pneumonia (recurrent); Z20.828 Contact with and (suspected) exposure to other viral communicable diseases

== ENCOUNTER 2020-11-11 09:57 | Emergency (ER) | payer BC ==
[~2020-11-11] VITALS: Ht 193 cm; Wt 154.5 kg
[~2020-11-11 09:57] MED LIST changes: +LANSOPRAZOLE30 MG PO; +LORATADINE10 M1 PO; +SINGULAIR10 MG PO; +TESSALON PERLE100 MG PO; +ZITHROMAX250 MG PO
[2020-11-11 10:00] VITALS: BP 147/89
[2020-11-11 11:24] LABS: HEMATOCRIT 44.3 % (39.0-50.0); HEMOGLOBIN 14.3 g/dl (14.0-18.0); IMMATURE GRANULOCYTES 0.2 % (0.0-5.0); MEAN CORPUSCULAR HGB 29.1 pG CALC (26.0-32.0); MEAN CORPUSCULAR HGB CONC 32.3 g/dL CAL (32.0-36.0); NEUT# 6.58 thou/uL (1.82-7.42); RED BLOOD COUNT 4.92 mill/uL (4.70-6.10); RED CELL DISTRI WIDTH 13.5 % (11.5-15.5)
[2020-11-11 11:40] LABS: ALBUMIN 4.3 g/dL (3.2-5.0); ALKALINE PHOSPHATASE 74 u/l (38-126); ANION GAP 13 (6-22 (CALC)); BILIRUBIN, TOTAL 0.3 mg/dL (0.0-1.4); BUN 13 mg/dL (9-20); BUN/CREATININE RATIO 12 (12-20 (CALC)); CARBON DIOXIDE 26 mmol/l (22-30); CHLORIDE 104 mmol/l (95-108); CREATININE 1.1 mg/dL (0.7-1.3); GFR > 60 ML/MIN (>=60 (CALC)); GFR FOR AFR.AMER. > 60 ML/MIN (>=60 (CALC)); POTASSIUM 4.6 mmol/l (3.5-5.1); SGOT/AST 30 u/l (17-59); SODIUM 139 mmol/l (137-146); TOTAL PROTEIN 7.6 g/dL (6.3-8.2)
== END 2020-11-11 13:10 | disposition left against medical advice (07) | DRG 312 ==
LOC: ED 09:57
PROVIDERS: Family Medicine
DX: R55 Syncope and collapse (principal); E11.9 Type 2 diabetes mellitus without complications; I10 Essential (primary) hypertension; E03.9 Hypothyroidism, unspecified; E78.00 Pure hypercholesterolemia, unspecified; F17.200 Nicotine dependence, unspecified, uncomplicated; Z91.19 Patient's noncompliance with other medical treatment and regimen; Z79.84 Long term (current) use of oral hypoglycemic drugs; Z20.822 Contact with and (suspected) exposure to COVID-19

== ENCOUNTER 2022-02-12 07:08 | Day surgery (SDC) | payer BC ==
[~2022-02-12] VITALS: Ht 193 cm; Wt 159.7 kg
[~2022-02-12 07:08] MED LIST changes: +COZAAR100 MG PO; +MUSCLE RELAXER; +OZEMPIC 8 MG/3M1 INJ IJ; +PROTONIX20 M1 PO; +TIZANIDINE HCL2 MG PO
[2022-02-12 08:44] VITALS: BP 104/65
== END 2022-02-12 09:32 | disposition home or self-care (01) | DRG 392 ==
LOC: ENDO 07:08 → ORM 08:00 → ENDO 09:32 → ORM 15:30
PROVIDERS: ATTEND Internal Medicine Gastroenterology
PROC: 0DB78ZX Excision of Stomach, Pylorus, Via Natural or Artificial Opening Endoscopic, Diagnostic (ICD-10-PCS; principal; 2022-02-12)
PROC: 0DB38ZX Excision of Lower Esophagus, Via Natural or Artificial Opening Endoscopic, Diagnostic (ICD-10-PCS; 2022-02-12)
DX: K21.9 Gastro-esophageal reflux disease without esophagitis (principal); K29.70 Gastritis, unspecified, without bleeding; M19.90 Unspecified osteoarthritis, unspecified site; E78.5 Hyperlipidemia, unspecified; E03.9 Hypothyroidism, unspecified; F17.200 Nicotine dependence, unspecified, uncomplicated

== ENCOUNTER 2023-11-25 08:16 | Day surgery (SDC) | payer OTHER ==
[~2023-11-25 08:16] MED LIST changes: +CARAFATE1 GM PO; +CELEBREX200 M1 PO; +DICYCLOMINE HCL20 MG PO; +KLOR-CON M2020 MEQ PO; +LEVOFLOXACIN500MG PO; +LIDODERM5 % EX; +SLOW MAGNESIUM PO; -SYNTHROID125 MCG PO; +SYNTHROID150 MCG PO
[2023-11-25] MEDS ORDERED: LACTATED RINGER'S 0 ML IV ONE (08:44)
[2023-11-25] MEDS ORDERED: FAMOTIDINE 10MG/ML 2ML SDV IV ONE (08:44)
[2023-11-25] MEDS ORDERED: SODIUM CHLORIDE 0.9% 1,000 ML IV ONE (08:50)
[2023-11-25 10:52] VITALS: BP 108/81
[2023-11-25] MEDS ORDERED: LIDOCAINE HCL 2% 2ML SDV IV ONE (13:04)
[2023-11-25] MEDS ORDERED: PROPOFOL 200 MG/20 ML VIAL IV ONE (13:04)
[2023-11-25] MEDS ORDERED: GLYCOPYRROLATE 0.2 MG/ML IV ONE (13:04)
[2023-11-25] MEDS ORDERED: KETAMINE HCL 50 MG/ML 10 ML VIAL IV ONE (13:04)
== END 2023-11-25 11:00 | disposition home or self-care (01) | DRG 392 ==
LOC: ORM 08:16
PROVIDERS: ATTEND Internal Medicine Gastroenterology
PROC: 0DBK8ZX Excision of Ascending Colon, Via Natural or Artificial Opening Endoscopic, Diagnostic (ICD-10-PCS; principal; 2023-11-25)
PROC: 0DBL8ZX Excision of Transverse Colon, Via Natural or Artificial Opening Endoscopic, Diagnostic (ICD-10-PCS; 2023-11-25)
PROC: 0DBP8ZX Excision of Rectum, Via Natural or Artificial Opening Endoscopic, Diagnostic (ICD-10-PCS; 2023-11-25)
PROC: 0DB48ZX Excision of Esophagogastric Junction, Via Natural or Artificial Opening Endoscopic, Diagnostic (ICD-10-PCS; 2023-11-25)
PROC: 0DB78ZX Excision of Stomach, Pylorus, Via Natural or Artificial Opening Endoscopic, Diagnostic (ICD-10-PCS; 2023-11-25)
DX: K21.00 Gastro-esophageal reflux disease with esophagitis, without bleeding (principal); K29.60 Other gastritis without bleeding; K31.89 Other diseases of stomach and duodenum; D12.2 Benign neoplasm of ascending colon; D12.3 Benign neoplasm of transverse colon; K64.8 Other hemorrhoids; K62.1 Rectal polyp; I10 Essential (primary) hypertension; E11.9 Type 2 diabetes mellitus without complications; J45.909 Unspecified asthma, uncomplicated; E03.9 Hypothyroidism, unspecified; E78.5 Hyperlipidemia, unspecified; I34.1 Nonrheumatic mitral (valve) prolapse; E66.9 Obesity, unspecified; G47.30 Sleep apnea, unspecified; F17.220 Nicotine dependence, chewing tobacco, uncomplicated